=== PATIENT | male | born 1990 | race Hispanic/Latino ===

== ENCOUNTER 2020-10-03 15:44 | Emergency (ER) | payer OTHER ==
[~2020-10-03] VITALS: Ht 172.7 cm; Wt 72.6 kg
[2020-10-03 16:05] VITALS: BP 131/88
[2020-10-03] MEDS ORDERED: IBUPROFEN600 MG PO (17:53)
== END 2020-10-03 18:00 | disposition home or self-care (01) | DRG 563 ==
LOC: ED 15:44
DX: S83.91XA Sprain of unspecified site of right knee, initial encounter (principal); X50.0XXA Overexertion from strenuous movement or load, initial encounter; Y93.89 Activity, other specified; Y92.73 Farm field as the place of occurrence of the external cause; Y99.0 Civilian activity done for income or pay
CPT/HCPCS: L1830